=== PATIENT | female | born 1940 | race Caucasian/White ===

== ENCOUNTER 2021-02-04 10:14 | Inpatient (IN) ==
[2021-02-04] MEDS ORDERED: PIPERACILLIN/TAZOBACTAM 3,375 MG in SODIUM CHLORIDE 0.9% 100 ML IV STA (11:08)
[2021-02-04] MEDS ORDERED: SODIUM CHLORIDE 0.9% 1,000 ML IV STA (11:08)
[2021-02-04 11:26] LABS: Basophils # 0.1 10*3/uL (0.0-0.2); Basophils % 0.2 % (0.0-0.8); Eosinophils # 0.1 10*3/uL (0.0-0.87); Eosinophils % 0.3 % (0.00-10.9); Hematocrit 38.1 VOL% (35.7-47.0); Hemoglobin 12.5 GM/DL (12.0-16.0); Immature Granulocytes % 1.2 %; Immature Granulocytes Absolute 0.28 #; Lymphocytes # 1.3 10*3/uL (1.4-4.0); Lymphocytes % 5.3 % (21.3-54.2); Mean Corpuscular HGB Conc 32.8 GM/DL (32-36); Mean Corpuscular Volume 97.2 FL (87-102); Mean Platelet Volume 11.3 FL (9.6-12.0); Monocytes % 13.5 % (1.7-12.7); Neutrophils % 79.5 % (38.7-73.9); Platelet Count 228 T/CUMM (130-400); Red Blood Count 3.92 MC/CUMM (3.8-5.5); Red Cell Distribution Width 15.2 % (9.3-17.3); White Blood Count 24.1 T/CUMM (4-12)
[2021-02-04 11:36] LABS: Albumin 2.9 G/DL (3.4-5.0); Bilirubin,Total 1.6 MG/DL (0.2-1.0); Calcium 8.7 MG/DL (8.5-10.1); Osmolality,Calculated 274.7 MOS/KG (273-304); Potassium 3.3 MMOL/L (3.5-5.1); Total Protein 6.5 G/DL (6.4-8.2)
[2021-02-04 11:40] LABS: Bilirubin,Urine Negative (Negative); Blood, Urine Negative (Negative); Glucose,Urine (UA) Negative (Negative); Ketones,Urine Negative (Negative); Mucus,Urine Occasional /LPF (Occasional); Nitrite,Urine Negative (Negative); Protein,Urine Negative; RBC,Urine 1 /HPF (0-4); Urine Appearance CLEAR (Clear); Urine Color Yellow (Yellow); Urine Specific Gravity 1.013 (1.001-1.035)
[2021-02-04 11:45] LABS: Eosinophils 1 % (0-10); Lymphocytes 6 % (20-55); Segmented Neutrophils 86 % (50-85); Total Cells Counted 100
[2021-02-04 11:46] LABS: Microcytosis 1+; Ovalocytes Few; Platelet Estimate Normal
[2021-02-04] MEDS ORDERED: VANCOMYCIN INJ 1,000 MG in SODIUM CHLORIDE 0.9% 250 ML IV STA (13:28)
[2021-02-04] MEDS ORDERED: POTASSIUM CHLORIDE 20 MEQ TABLET PO STA (15:17)
[2021-02-04] MEDS ORDERED: ONDANSETRON 4 MG/2 ML VIAL IV PRN (16:28)
[2021-02-04] MEDS ORDERED: HYDROmorphone 2 MG/1 ML VIAL IV PRN (16:28)
[2021-02-04] MEDS ORDERED: DEXTROSE 50% 25 GM/50 ML VIAL IV PRN (16:28)
[2021-02-04] MEDS ORDERED: ACETAMINOPHEN 325 MG TABLET PO PRN (16:28)
[2021-02-04] MEDS ORDERED: GLUCAGON 1 MG VIAL IM PRN (16:28)
[2021-02-04] MEDS ORDERED: PROMETHAZINE 25 MG/1 ML VIAL IM PRN (16:28)
[2021-02-04] MEDS ORDERED: VANCOMYCIN INJ 1,500 MG in SODIUM CHLORIDE 0.9% 500 ML IV SCH (18:00)
[2021-02-04] MEDS: LACTATED RINGERS 1,000 ML IV SCH (18:02)
[2021-02-04] MEDS: PIPERACILLIN/TAZOBACTAM 3,375 MG in SODIUM CHLORIDE 0.9% 100 ML IV SCH (18:36)
[2021-02-04] MEDS: busPIRone 15 MG TABLET PO SCH (20:36)
[2021-02-04] MEDS: MILNACIPRAN 25 MG PO SCH (20:38)
[2021-02-05] MEDS: KETOROLAC 15 MG/1 ML VIAL IV PRN (00:05)
[2021-02-05] MEDS: PIPERACILLIN/TAZOBACTAM 3,375 MG in SODIUM CHLORIDE 0.9% 100 ML IV SCH ×3 (01:31→18:14)
[2021-02-05] MEDS: LACTATED RINGERS 1,000 ML IV SCH ×3 (01:40→18:17)
[2021-02-05 05:18] LABS: Basophils % 0.2 % (0.0-0.8); Eosinophils # 0.3 10*3/uL (0.0-0.87); Eosinophils % 1.8 % (0.00-10.9); Hematocrit 34.5 VOL% (35.7-47.0); Hemoglobin 11.5 GM/DL (12.0-16.0); Immature Granulocytes % 0.8 %; Immature Granulocytes Absolute 0.13 #; Lymphocytes # 2.3 10*3/uL (1.4-4.0); Lymphocytes % 13.7 % (21.3-54.2); Mean Corpuscular HGB Conc 33.3 GM/DL (32-36); Mean Corpuscular Volume 96.6 FL (87-102); Mean Platelet Volume 11.5 FL (9.6-12.0); Monocytes % 14.1 % (1.7-12.7); Neutrophils % 69.4 % (38.7-73.9); Platelet Count 184 T/CUMM (130-400); Red Blood Count 3.57 MC/CUMM (3.8-5.5); Red Cell Distribution Width 14.9 % (9.3-17.3); White Blood Count 16.5 T/CUMM (4-12)
[2021-02-05 05:53] LABS: Calcium 8.9 MG/DL (8.5-10.1); Osmolality,Calculated 283.8 MOS/KG (273-304); Potassium 4.1 MMOL/L (3.5-5.1)
[2021-02-05] MEDS ORDERED: LIDOCAINE 1%/EPI INJ 20 ML VIAL ONE (06:35)
[2021-02-05] MEDS ORDERED: BUPIVACAINE MPF 0.25% 30 ML VIAL ONE (06:35)
[2021-02-05] MEDS ORDERED: MIDAZOLAM 2 MG/2 ML VIAL ONE (06:49)
[2021-02-05] MEDS ORDERED: METOCLOPRAMIDE 10 MG/2 ML VIAL ONE (06:56)
[2021-02-05] MEDS ORDERED: LACTATED RINGERS 1,000 ML IV SCH (07:00)
[2021-02-05] MEDS ORDERED: LIDOCAINE 2% 5 ML VIAL ONE (07:36)
[2021-02-05] MEDS ORDERED: propofoL 200 MG/20 ML VIAL IV ONE (07:36)
[2021-02-05] MEDS ORDERED: SEVOFLURANE 1 UNIT/15 MINUTE INH ONE (07:36)
[2021-02-05] MEDS ORDERED: PHENYLEPHRINE 1 MG/10 ML SYRINGE IV ONE (07:36)
[2021-02-05] MEDS ORDERED: ONDANSETRON 4 MG/2 ML VIAL ONE (07:36)
[2021-02-05] MEDS ORDERED: HYDROmorphone 2 MG/1 ML VIAL IV PRN (08:16)
[2021-02-05] MEDS ORDERED: ONDANSETRON 4 MG/2 ML VIAL IV PRN (08:16)
[2021-02-05] MEDS ORDERED: HYDROmorphone 2 MG/1 ML VIAL ONE (08:18)
[2021-02-05] MEDS ORDERED: PANTOPRAZOLE 40 MG TABLET PO SCH (09:00)
[2021-02-05] MEDS ORDERED: traMADol 50 MG TABLET PO PRN ×2 (09:46)
[2021-02-05] MEDS ORDERED: tiZANidine 4 MG TABLET PO PRN (09:46)
[2021-02-05] MEDS ORDERED: INSULIN REGULAR 100 UNIT/ML SUBCUT SCH (11:30)
[2021-02-05] MEDS: ENOXAPARIN 40 MG/0.4 ML SYRINGE SUBCUT SCH (11:54)
[2021-02-05] MEDS: busPIRone 15 MG TABLET PO SCH ×3 (11:54→20:55)
[2021-02-05] MEDS: allopurinoL 100 MG TABLET PO SCH (11:54)
[2021-02-05] MEDS: PREGABALIN 75 MG CAPSULE PO SCH (11:55)
[2021-02-05] MEDS: FAMCICLOVIR 250 MG TABLET PO SCH ×2 (11:55→20:55)
[2021-02-05] MEDS: NEBIVOLOL 5 MG TABLET PO SCH (11:55)
[2021-02-05] MEDS: HYDROXYCHLOROQUINE 200 MG TABLET PO SCH (11:55)
[2021-02-05] MEDS ORDERED: diphenhydrAMINE CAP 25 MG CAPSULE PO PRN (12:10)
[2021-02-05] MEDS: MILNACIPRAN 25 MG PO SCH ×2 (12:14→20:54)
[2021-02-05] MEDS: BIOTIN 5 MG PO SCH (12:15)
[2021-02-05] MEDS: VANCOMYCIN INJ 1,500 MG in SODIUM CHLORIDE 0.9% 500 ML IV SCH (16:06)
[2021-02-05] MEDS: PANTOPRAZOLE 40 MG TABLET PO SCH (18:14)
[2021-02-05] MEDS: PREGABALIN 100 MG CAPSULE PO SCH (18:15)
[2021-02-06] MEDS: PIPERACILLIN/TAZOBACTAM 3,375 MG in SODIUM CHLORIDE 0.9% 100 ML IV SCH ×3 (00:34→16:28)
[2021-02-06 06:58] LABS: Calcium 9.2 MG/DL (8.5-10.1); Osmolality,Calculated 277.4 MOS/KG (273-304); Potassium 3.6 MMOL/L (3.5-5.1)
[2021-02-06 07:05] LABS: Basophils # 0.1 10*3/uL (0.0-0.2); Basophils % 0.4 % (0.0-0.8); Eosinophils # 0.2 10*3/uL (0.0-0.87); Eosinophils % 1.4 % (0.00-10.9); Hematocrit 38.6 VOL% (35.7-47.0); Hemoglobin 13.4 GM/DL (12.0-16.0); Immature Granulocytes % 1.1 %; Immature Granulocytes Absolute 0.19 #; Lymphocytes % 11.8 % (21.3-54.2); Mean Corpuscular HGB Conc 34.7 GM/DL (32-36); Mean Corpuscular Volume 94.4 FL (87-102); Mean Platelet Volume 12.8 FL (9.6-12.0); Monocytes % 16.4 % (1.7-12.7); Neutrophils % 68.9 % (38.7-73.9); Platelet Count 176 T/CUMM (130-400); Red Blood Count 4.09 MC/CUMM (3.8-5.5); Red Cell Distribution Width 14.9 % (9.3-17.3); White Blood Count 16.8 T/CUMM (4-12)
[2021-02-06 07:51] LABS: Anisocytosis Slight; Eosinophils 2 % (0-10); Lymphocytes 12 % (20-55); Macrocytosis Slight; Platelet Estimate Normal; Polychromasia 1+; Segmented Neutrophils 69 % (50-85); Total Cells Counted 100
[2021-02-06] MEDS: VANCOMYCIN INJ 1,500 MG in SODIUM CHLORIDE 0.9% 500 ML IV SCH (09:14)
[2021-02-06] MEDS: LACTATED RINGERS 1,000 ML IV SCH (09:17)
[2021-02-06] MEDS: ENOXAPARIN 40 MG/0.4 ML SYRINGE SUBCUT SCH (09:17)
[2021-02-06] MEDS: busPIRone 15 MG TABLET PO SCH ×3 (09:18→21:22)
[2021-02-06] MEDS: allopurinoL 100 MG TABLET PO SCH (09:18)
[2021-02-06] MEDS: PANTOPRAZOLE 40 MG TABLET PO SCH ×2 (09:18→16:27)
[2021-02-06] MEDS: NEBIVOLOL 5 MG TABLET PO SCH (09:18)
[2021-02-06] MEDS: PREGABALIN 75 MG CAPSULE PO SCH (09:18)
[2021-02-06] MEDS: BIOTIN 5 MG PO SCH (09:19)
[2021-02-06] MEDS: MILNACIPRAN 25 MG PO SCH ×2 (09:20→21:23)
[2021-02-06] MEDS: FAMCICLOVIR 250 MG TABLET PO SCH ×2 (10:52→21:22)
[2021-02-06] MEDS: HYDROXYCHLOROQUINE 200 MG TABLET PO SCH (10:52)
[2021-02-06] MEDS ORDERED: POTASSIUM CHLORIDE RIDER 10 MEQ/100 ML PREMIX IV PRN (15:05)
[2021-02-06] MEDS ORDERED: MAGNESIUM SULF RIDER 2 GM/50 ML PREMIX IV PRN (15:05)
[2021-02-06] MEDS ORDERED: MAGNESIUM SULF RIDER 4 GM/100 ML PREMIX IV PRN (15:05)
[2021-02-06] MEDS: POTASSIUM CHLORIDE 20 MEQ TABLET PO PRN ×2 (16:27→18:05)
[2021-02-06] MEDS: PREGABALIN 100 MG CAPSULE PO SCH (16:27)
[2021-02-07] MEDS: PIPERACILLIN/TAZOBACTAM 3,375 MG in SODIUM CHLORIDE 0.9% 100 ML IV SCH ×3 (01:15→16:50)
[2021-02-07] MEDS: KETOROLAC 15 MG/1 ML VIAL IV PRN (04:57)
[2021-02-07] MEDS: VANCOMYCIN INJ 1,500 MG in SODIUM CHLORIDE 0.9% 500 ML IV SCH ×2 (05:31→23:13)
[2021-02-07 06:47] LABS: Basophils # 0.1 10*3/uL (0.0-0.2); Basophils % 0.4 % (0.0-0.8); Eosinophils # 0.3 10*3/uL (0.0-0.87); Eosinophils % 2.3 % (0.00-10.9); Hematocrit 35.4 VOL% (35.7-47.0); Hemoglobin 11.8 GM/DL (12.0-16.0); Immature Granulocytes % 1.9 %; Immature Granulocytes Absolute 0.29 #; Lymphocytes # 1.9 10*3/uL (1.4-4.0); Lymphocytes % 12.4 % (21.3-54.2); Mean Corpuscular HGB Conc 33.3 GM/DL (32-36); Mean Corpuscular Volume 95.7 FL (87-102); Mean Platelet Volume 10.9 FL (9.6-12.0); Monocytes % 16.5 % (1.7-12.7); Neutrophils % 66.5 % (38.7-73.9); Platelet Count 223 T/CUMM (130-400); Red Cell Distribution Width 15.1 % (9.3-17.3); White Blood Count 14.9 T/CUMM (4-12)
[2021-02-07 07:15] LABS: Calcium 8.9 MG/DL (8.5-10.1); Osmolality,Calculated 291.4 MOS/KG (273-304); Potassium 3.9 MMOL/L (3.5-5.1)
[2021-02-07 07:34] LABS: Anisocytosis 3+; Band Neutrophils 4 % (0-10); Eosinophils 3 % (0-10); Lymphocytes 11 % (20-55); Platelet Estimate Normal; Poikilocytosis 1+; Segmented Neutrophils 67 % (50-85); Total Cells Counted 100
[2021-02-07 07:36] LABS: Burr Cells 1+; Ovalocytes Few; Tear Drop Cells Few
[2021-02-07] MEDS ORDERED: POLYETHYLENE GLYCOL POWDER 17 GM PACK PO PRN (07:47)
[2021-02-07] MEDS ORDERED: TETANUS IMMUNE GLOBULIN 250 UNIT SYRINGE IM ONE (09:00)
[2021-02-07] MEDS: busPIRone 15 MG TABLET PO SCH ×3 (09:50→20:56)
[2021-02-07] MEDS: FAMCICLOVIR 250 MG TABLET PO SCH ×2 (09:50→20:57)
[2021-02-07] MEDS: PREGABALIN 75 MG CAPSULE PO SCH (09:50)
[2021-02-07] MEDS: allopurinoL 100 MG TABLET PO SCH (09:51)
[2021-02-07] MEDS: NEBIVOLOL 5 MG TABLET PO SCH (09:51)
[2021-02-07] MEDS: ENOXAPARIN 40 MG/0.4 ML SYRINGE SUBCUT SCH (09:51)
[2021-02-07] MEDS: POTASSIUM CHLORIDE 20 MEQ TABLET PO PRN (09:51)
[2021-02-07] MEDS: PANTOPRAZOLE 40 MG TABLET PO SCH ×2 (09:51→15:41)
[2021-02-07] MEDS: HYDROXYCHLOROQUINE 200 MG TABLET PO SCH (09:51)
[2021-02-07] MEDS: BIOTIN 5 MG PO SCH (10:41)
[2021-02-07] MEDS: MILNACIPRAN 25 MG PO SCH ×2 (10:41→20:58)
[2021-02-07] MEDS: PREGABALIN 100 MG CAPSULE PO SCH (16:47)
[2021-02-08] MEDS: PIPERACILLIN/TAZOBACTAM 3,375 MG in SODIUM CHLORIDE 0.9% 100 ML IV SCH ×2 (02:15→08:01)
[2021-02-08 06:03] LABS: Basophils % 0.3 % (0.0-0.8); Eosinophils # 0.3 10*3/uL (0.0-0.87); Eosinophils % 2.1 % (0.00-10.9); Hematocrit 45.1 VOL% (35.7-47.0); Hemoglobin 14.5 GM/DL (12.0-16.0); Immature Granulocytes % 3.1 %; Immature Granulocytes Absolute 0.47 #; Lymphocytes # 1.4 10*3/uL (1.4-4.0); Lymphocytes % 9.5 % (21.3-54.2); Mean Corpuscular HGB Conc 32.2 GM/DL (32-36); Mean Corpuscular Volume 100.7 FL (87-102); Monocytes % 12.8 % (1.7-12.7); Neutrophils % 72.2 % (38.7-73.9); Platelet Count 189 T/CUMM (130-400); Red Blood Count 4.48 MC/CUMM (3.8-5.5); Red Cell Distribution Width 15.3 % (9.3-17.3)
[2021-02-08 06:26] LABS: Calcium 9.2 MG/DL (8.5-10.1); Potassium 4.6 MMOL/L (3.5-5.1)
[2021-02-08] MEDS: ENOXAPARIN 40 MG/0.4 ML SYRINGE SUBCUT SCH (08:44)
[2021-02-08] MEDS: busPIRone 15 MG TABLET PO SCH ×3 (08:44→20:31)
[2021-02-08] MEDS: allopurinoL 100 MG TABLET PO SCH (08:45)
[2021-02-08] MEDS: FAMCICLOVIR 250 MG TABLET PO SCH ×2 (08:45→20:31)
[2021-02-08] MEDS: PREGABALIN 75 MG CAPSULE PO SCH (08:46)
[2021-02-08] MEDS: NEBIVOLOL 10 MG TABLET PO SCH (08:46)
[2021-02-08] MEDS: PANTOPRAZOLE 40 MG TABLET PO SCH ×2 (08:46→16:04)
[2021-02-08] MEDS: HYDROXYCHLOROQUINE 200 MG TABLET PO SCH (08:46)
[2021-02-08] MEDS: BIOTIN 5 MG PO SCH (08:46)
[2021-02-08] MEDS: MILNACIPRAN 25 MG PO SCH ×2 (08:47→20:31)
[2021-02-08] MEDS ORDERED: METHOTREXATE 50 MG/2 ML VIAL IM SCH (09:00)
[2021-02-08] MEDS ORDERED: LEUCOVORIN TAB 5 MG TABLET PO SCH ×2 (09:00)
[2021-02-08] MEDS: PREGABALIN 100 MG CAPSULE PO SCH (16:04)
[2021-02-09] MEDS ORDERED: VANCOMYCIN INJ 1,500 MG in SODIUM CHLORIDE 0.9% 500 ML IV SCH (06:00)
[2021-02-09] MEDS: ENOXAPARIN 40 MG/0.4 ML SYRINGE SUBCUT SCH (09:01)
[2021-02-09] MEDS: HYDROXYCHLOROQUINE 200 MG TABLET PO SCH (09:02)
[2021-02-09] MEDS: NEBIVOLOL 10 MG TABLET PO SCH (09:02)
[2021-02-09] MEDS: PREGABALIN 75 MG CAPSULE PO SCH (09:02)
[2021-02-09] MEDS: busPIRone 15 MG TABLET PO SCH ×3 (09:02→20:38)
[2021-02-09] MEDS: FAMCICLOVIR 250 MG TABLET PO SCH ×2 (09:02→20:38)
[2021-02-09] MEDS: PANTOPRAZOLE 40 MG TABLET PO SCH ×2 (09:02→16:25)
[2021-02-09] MEDS: allopurinoL 100 MG TABLET PO SCH (09:03)
[2021-02-09] MEDS: MILNACIPRAN 25 MG PO SCH ×2 (09:03→20:38)
[2021-02-09] MEDS: BIOTIN 5 MG PO SCH (09:03)
[2021-02-09] MEDS: PREGABALIN 100 MG CAPSULE PO SCH (16:25)
[2021-02-09 23:26] VITALS: BP 135/74
== END 2021-02-10 00:05 | DRG 580 ==
LOC: EDUNIT# → EDBD → N.ED 10:14 → N.EDINP 13:28 → N.TELEN 15:43
PROVIDERS: ADMIT Surgery; ATTEND Surgery

== ENCOUNTER 2021-03-26 12:25 | Inpatient (IN) ==
[2021-03-26 14:37] LABS: Basophils % 0.2 % (0.0-0.8); Eosinophils # 0.3 10*3/uL (0.0-0.87); Eosinophils % 2.5 % (0.00-10.9); Hematocrit 21.1 VOL% (35.7-47.0); Hemoglobin 6.6 GM/DL (12.0-16.0); Immature Granulocytes % 0.9 %; Immature Granulocytes Absolute 0.12 #; Lymphocytes # 2.7 10*3/uL (1.4-4.0); Lymphocytes % 20.3 % (21.3-54.2); Mean Corpuscular HGB Conc 31.3 GM/DL (32-36); Mean Corpuscular Volume 99.1 FL (87-102); Mean Platelet Volume 12.6 FL (9.6-12.0); Monocytes % 21.3 % (1.7-12.7); Neutrophils % 54.8 % (38.7-73.9); Platelet Count 107 T/CUMM (130-400); Red Blood Count 2.13 MC/CUMM (3.8-5.5); Red Cell Distribution Width 18.4 % (9.3-17.3); White Blood Count 13.1 T/CUMM (4-12)
[2021-03-26 14:53] LABS: Calcium 9.1 MG/DL (8.5-10.1); Osmolality,Calculated 302.8 MOS/KG (273-304); Potassium 4.1 MMOL/L (3.5-5.1)
[2021-03-26] MEDS ORDERED: ONDANSETRON 4 MG/2 ML VIAL IV PRN (15:15)
[2021-03-26] MEDS ORDERED: ACETAMINOPHEN 325 MG TABLET PO PRN (15:15)
[2021-03-26] MEDS ORDERED: SODIUM CHLORIDE 0.9% 1,000 ML IV PRN (15:18)
[2021-03-26 15:26] LABS: Eosinophils 4 % (0-10); Hypochromasia 4+; Lymphocytes 16 % (20-55); Segmented Neutrophils 70 % (50-85); Total Cells Counted 100
[2021-03-26 15:28] LABS: INR 1.5; PT Patient Result 16.3 SECS (10.5-12.0); Partial Thromboplastin Time 35.9 SECS (23.9-33.8)
[2021-03-26] MEDS ORDERED: oxyCODONE/ACETAMINOPHEN 5-325 MG TABLET PO PRN (17:41)
[2021-03-26] MEDS: busPIRone 10 MG TABLET PO SCH ×2 (19:48→23:20)
[2021-03-26] MEDS: PREGABALIN 75 MG CAPSULE PO SCH (21:38)
[2021-03-26] MEDS: DOCUSATE SODIUM 100 MG CAPSULE PO SCH (21:38)
[2021-03-26] MEDS: SODIUM CHLORIDE 0.9% 1,000 ML IV SCH (23:20)
[2021-03-26] MEDS: AMOXICILLIN/CLAV 500 MG TABLET PO SCH (23:20)
[2021-03-27 01:05] LABS: Hematocrit 30.1 VOL% (35.7-47.0)
[2021-03-27 01:07] LABS: Hemoglobin 9.7 GM/DL (12.0-16.0)
[2021-03-27] MEDS: busPIRone 10 MG TABLET PO SCH ×4 (05:42→23:48)
[2021-03-27] MEDS: PREGABALIN 75 MG CAPSULE PO SCH ×2 (05:42→21:41)
[2021-03-27] MEDS: AMOXICILLIN/CLAV 500 MG TABLET PO SCH ×3 (05:42→21:41)
[2021-03-27] MEDS ORDERED: METOPROLOL TARTRATE 50 MG TABLET PO SCH (09:00)
[2021-03-27] MEDS ORDERED: METOPROLOL TARTRATE 50 MG TABLET PO ONE (09:28)
[2021-03-27] MEDS: allopurinoL 100 MG TABLET PO SCH (10:01)
[2021-03-27] MEDS: MEGESTROL 400 MG/10 ML UDCUP PO SCH (10:01)
[2021-03-27] MEDS: DOCUSATE SODIUM 100 MG CAPSULE PO SCH ×2 (10:01→21:41)
[2021-03-27] MEDS: HYDROXYCHLOROQUINE 200 MG TABLET PO SCH (10:01)
[2021-03-27] MEDS: MULTIVITAMIN (CENTRUM) TABLET PO SCH (10:01)
[2021-03-27] MEDS: PANTOPRAZOLE 40 MG TABLET PO SCH (10:02)
[2021-03-27] MEDS: METOPROLOL TARTRATE 50 MG TABLET PO SCH (21:41)
[2021-03-28] MEDS: SODIUM CHLORIDE 0.9% 1,000 ML IV SCH ×2 (05:30→23:53)
[2021-03-28] MEDS: PREGABALIN 75 MG CAPSULE PO SCH ×2 (05:43→20:18)
[2021-03-28] MEDS: busPIRone 10 MG TABLET PO SCH ×4 (05:43→23:52)
[2021-03-28] MEDS: AMOXICILLIN/CLAV 500 MG TABLET PO SCH (05:43)
[2021-03-28 05:47] LABS: Albumin 2.2 G/DL (3.4-5.0); Calcium 9.1 MG/DL (8.5-10.1); Osmolality,Calculated 294.1 MOS/KG (273-304); Potassium 4.6 MMOL/L (3.5-5.1); Thyroid Stimulating Hormone 3.2 uIU/ml (0.358-3.74); Total Protein 6.6 G/DL (6.4-8.2)
[2021-03-28 07:21] LABS: Basophils % 0.3 % (0.0-0.8); Eosinophils # 0.5 10*3/uL (0.0-0.87); Eosinophils % 2.9 % (0.00-10.9); Hematocrit 29.2 VOL% (35.7-47.0); Hemoglobin 9.3 GM/DL (12.0-16.0); Immature Granulocytes % 4.1 %; Immature Granulocytes Absolute 0.64 #; Mean Corpuscular HGB Conc 31.8 GM/DL (32-36); Mean Corpuscular Volume 95.1 FL (87-102); Mean Platelet Volume 13.2 FL (9.6-12.0); Monocytes % 23.2 % (1.7-12.7); Neutrophils % 50.5 % (38.7-73.9); Red Blood Count 3.07 MC/CUMM (3.8-5.5); Red Cell Distribution Width 16.9 % (9.3-17.3); White Blood Count 15.7 T/CUMM (4-12)
[2021-03-28 07:22] LABS: Platelet Count 81 T/CUMM (130-400)
[2021-03-28 07:40] LABS: Eosinophils 4 % (0-10); Lymphocytes 20 % (20-55); Nucleated Red Blood Cells 1 (0-5); Platelet Estimate Decreased; Segmented Neutrophils 55 % (50-85); Total Cells Counted 100
[2021-03-28 07:41] LABS: Hypochromasia 1+; Microcytosis 1+
[2021-03-28] MEDS: allopurinoL 100 MG TABLET PO SCH (08:39)
[2021-03-28] MEDS: HYDROXYCHLOROQUINE 200 MG TABLET PO SCH (08:39)
[2021-03-28] MEDS: PANTOPRAZOLE 40 MG TABLET PO SCH (08:39)
[2021-03-28] MEDS: DOCUSATE SODIUM 100 MG CAPSULE PO SCH ×2 (08:39→20:18)
[2021-03-28] MEDS: MULTIVITAMIN (CENTRUM) TABLET PO SCH (08:39)
[2021-03-28] MEDS: METOPROLOL TARTRATE 50 MG TABLET PO SCH ×2 (08:39→20:18)
[2021-03-28] MEDS: MEGESTROL 400 MG/10 ML UDCUP PO SCH (08:40)
[2021-03-28] MEDS: PIPERACILLIN/TAZOBACTAM 3,375 MG in SODIUM CHLORIDE 0.9% 100 ML IV SCH ×2 (10:00→17:34)
[2021-03-28] MEDS: cloNIDine 0.1 MG TABLET PO PRN (10:07)
[2021-03-28 13:27] LABS: Amorphous Crystals,Urine Occasional /HPF (Few); Bacteria,Urine Occasional /HPF (Few); Bilirubin,Urine Negative (Negative); Blood, Urine Large mg/dL (Negative); Glucose,Urine (UA) Negative (Negative); Hyaline Casts,Urine 4 /LPF (0-3); Ketones,Urine Negative (Negative); Mucus,Urine Occasional /LPF (Occasional); Nitrite,Urine Negative (Negative); Protein,Urine 100 MG/DL; RBC,Urine 100 /HPF (0-4); Squamous Epithelial Cell,Urine Occasional /HPF (0-10); Urine Appearance Slightly Hazy (Clear); Urine Color Yellow (Yellow); Urine Specific Gravity 1.017 (1.001-1.035); Urine Urobilinogen < 2.0 EU/DL (0.2-1.0)
[2021-03-29] MEDS: PIPERACILLIN/TAZOBACTAM 3,375 MG in SODIUM CHLORIDE 0.9% 100 ML IV SCH ×3 (02:30→18:02)
[2021-03-29] MEDS: busPIRone 10 MG TABLET PO SCH ×4 (05:24→23:59)
[2021-03-29] MEDS: PREGABALIN 75 MG CAPSULE PO SCH ×2 (05:24→21:57)
[2021-03-29] MEDS: MULTIVITAMIN (CENTRUM) TABLET PO SCH (08:56)
[2021-03-29] MEDS: DOCUSATE SODIUM 100 MG CAPSULE PO SCH ×2 (08:56→21:57)
[2021-03-29] MEDS: METOPROLOL TARTRATE 50 MG TABLET PO SCH ×2 (08:57→21:57)
[2021-03-29] MEDS: allopurinoL 100 MG TABLET PO SCH (08:57)
[2021-03-29] MEDS: PANTOPRAZOLE 40 MG TABLET PO SCH ×2 (08:57→21:57)
[2021-03-29] MEDS: HYDROXYCHLOROQUINE 200 MG TABLET PO SCH (08:57)
[2021-03-29] MEDS ORDERED: NITROGLYCERIN SL 0.4 MG TABLET SL ONE (09:56)
[2021-03-29] MEDS ORDERED: ASPIRIN CHEW 81 MG TABLET PO ONE ×2 (09:57→10:00)
[2021-03-29] MEDS: NITROGLYCERIN SL 0.4 MG TABLET SL PRN ×3 (09:58→10:10)
[2021-03-29] MEDS: cloNIDine 0.1 MG TABLET PO SCH ×2 (10:19→21:57)
[2021-03-29] MEDS: MEGESTROL 400 MG/10 ML UDCUP PO SCH (10:19)
[2021-03-29] MEDS ORDERED: ALUM/MAG/SIMETH/LIDO VISC 1:1 30 ML BOTTLE PO ONE (10:26)
[2021-03-29 11:24] LABS: Albumin 2.3 G/DL (3.4-5.0); Calcium 8.8 MG/DL (8.5-10.1); Osmolality,Calculated 299.6 MOS/KG (273-304); Potassium 4.1 MMOL/L (3.5-5.1); Total Protein 6.5 G/DL (6.4-8.2)
[2021-03-29] MEDS: cloNIDine 0.1 MG TABLET PO PRN (18:04)
[2021-03-30] MEDS: PIPERACILLIN/TAZOBACTAM 3,375 MG in SODIUM CHLORIDE 0.9% 100 ML IV SCH ×3 (02:22→17:48)
[2021-03-30 05:40] LABS: Basophils % 0.3 % (0.0-0.8); Eosinophils # 0.3 10*3/uL (0.0-0.87); Hematocrit 25.9 VOL% (35.7-47.0); Immature Granulocytes % 4.9 %; Immature Granulocytes Absolute 0.55 #; Lymphocytes # 1.8 10*3/uL (1.4-4.0); Lymphocytes % 15.5 % (21.3-54.2); Mean Corpuscular HGB Conc 30.9 GM/DL (32-36); Mean Corpuscular Volume 98.5 FL (87-102); Monocytes % 23.4 % (1.7-12.7); Neutrophils % 52.9 % (38.7-73.9); Red Blood Count 2.63 MC/CUMM (3.8-5.5); Red Cell Distribution Width 17.5 % (9.3-17.3); White Blood Count 11.3 T/CUMM (4-12)
[2021-03-30 05:43] LABS: Platelet Count 84 T/CUMM (130-400)
[2021-03-30] MEDS: busPIRone 10 MG TABLET PO SCH ×4 (05:46→23:42)
[2021-03-30] MEDS: PREGABALIN 75 MG CAPSULE PO SCH ×2 (05:47→21:07)
[2021-03-30 06:04] LABS: Calcium 8.8 MG/DL (8.5-10.1); Osmolality,Calculated 300.4 MOS/KG (273-304); Potassium 4.3 MMOL/L (3.5-5.1)
[2021-03-30 06:23] LABS: Eosinophils 3 % (0-10); Lymphocytes 13 % (20-55); Metamyelocytes 2 %; Myelocytes 2 %; Segmented Neutrophils 61 % (50-85); Total Cells Counted 100
[2021-03-30 06:24] LABS: Hypochromasia 1+; Platelet Estimate Adequate; Polychromasia Few
[2021-03-30] MEDS: LACTATED RINGERS 1,000 ML IV SCH (08:50)
[2021-03-30] MEDS: MULTIVITAMIN (CENTRUM) TABLET PO SCH (11:39)
[2021-03-30] MEDS: METOPROLOL TARTRATE 50 MG TABLET PO SCH ×2 (11:39→21:07)
[2021-03-30] MEDS: cloNIDine 0.1 MG TABLET PO SCH ×2 (11:40→21:07)
[2021-03-30] MEDS: HYDROXYCHLOROQUINE 200 MG TABLET PO SCH (11:40)
[2021-03-30] MEDS: DOCUSATE SODIUM 100 MG CAPSULE PO SCH ×2 (11:40→21:07)
[2021-03-30] MEDS: allopurinoL 100 MG TABLET PO SCH (11:40)
[2021-03-30] MEDS: PANTOPRAZOLE 40 MG TABLET PO SCH ×2 (11:40→21:07)
[2021-03-30] MEDS: MEGESTROL 400 MG/10 ML UDCUP PO SCH (11:51)
[2021-03-30] MEDS ORDERED: LORazepam 0.5 MG TABLET PO ONE (12:31)
[2021-03-30] MEDS: SODIUM CHLORIDE 0.9% 1,000 ML IV SCH (17:48)
[2021-03-30] MEDS: ENOXAPARIN 30 MG/0.3 ML SYRINGE SUBCUT SCH (21:09)
[2021-03-31] MEDS: SODIUM CHLORIDE 0.9% 1,000 ML IV SCH (01:34)
[2021-03-31] MEDS: PIPERACILLIN/TAZOBACTAM 3,375 MG in SODIUM CHLORIDE 0.9% 100 ML IV SCH ×3 (01:35→17:44)
[2021-03-31] MEDS: busPIRone 10 MG TABLET PO SCH ×3 (05:19→17:44)
[2021-03-31] MEDS: PREGABALIN 75 MG CAPSULE PO SCH ×2 (05:19→20:02)
[2021-03-31] MEDS ORDERED: LACTATED RINGERS 1,000 ML IV SCH (07:00)
[2021-03-31 08:19] LABS: Calcium 8.7 MG/DL (8.5-10.1); Osmolality,Calculated 303.3 MOS/KG (273-304); Potassium 4.2 MMOL/L (3.5-5.1)
[2021-03-31] MEDS ORDERED: propofoL 200 MG/20 ML VIAL IV ONE (08:49)
[2021-03-31] MEDS ORDERED: LIDOCAINE 2% 5 ML VIAL ONE (08:49)
[2021-03-31] MEDS ORDERED: ETOMIDATE 20 MG/10 ML VIAL IV ONE (08:49)
[2021-03-31] MEDS: MEGESTROL 400 MG/10 ML UDCUP PO SCH (11:06)
[2021-03-31] MEDS: allopurinoL 100 MG TABLET PO SCH (11:06)
[2021-03-31] MEDS: PANTOPRAZOLE 40 MG TABLET PO SCH ×2 (11:06→20:03)
[2021-03-31] MEDS: cloNIDine 0.1 MG TABLET PO SCH ×2 (11:06→20:04)
[2021-03-31] MEDS: METOPROLOL TARTRATE 50 MG TABLET PO SCH ×2 (11:06→20:02)
[2021-03-31] MEDS: HYDROXYCHLOROQUINE 200 MG TABLET PO SCH (11:06)
[2021-03-31] MEDS: DOCUSATE SODIUM 100 MG CAPSULE PO SCH ×2 (11:06→20:03)
[2021-03-31] MEDS: MULTIVITAMIN (CENTRUM) TABLET PO SCH (11:06)
[2021-03-31 11:14] LABS: Basophils % 0.3 % (0.0-0.8); Eosinophils # 0.2 10*3/uL (0.0-0.87); Hemoglobin 8.7 GM/DL (12.0-16.0); Immature Granulocytes % 3.2 %; Immature Granulocytes Absolute 0.51 #; Lymphocytes # 2.1 10*3/uL (1.4-4.0); Lymphocytes % 13.5 % (21.3-54.2); Mean Corpuscular HGB Conc 32.2 GM/DL (32-36); Mean Corpuscular Volume 96.4 FL (87-102); Mean Platelet Volume 13.8 FL (9.6-12.0); NRBC # 0.02 10*3/uL; Platelet Count 117 T/CUMM (130-400); Red Cell Distribution Width 18.6 % (9.3-17.3); White Blood Count 15.8 T/CUMM (4-12)
[2021-03-31 11:57] LABS: Lymphocytes 14 % (20-55); Myelocytes 2 %; Segmented Neutrophils 68 % (50-85); Total Cells Counted 100
[2021-03-31 11:58] LABS: Hypochromasia 1+; Microcytosis 1+; Ovalocytes Slight; Platelet Estimate Adequate
[2021-03-31 11:59] LABS: Atypical Lymphocytes Few
[2021-03-31] MEDS: LACTATED RINGERS 1,000 ML IV SCH (17:29)
[2021-03-31] MEDS ORDERED: METOPROLOL TARTRATE 5 MG/5 ML VIAL IV ONE (19:47)
[2021-03-31] MEDS: ENOXAPARIN 30 MG/0.3 ML SYRINGE SUBCUT SCH (20:10)
[2021-03-31 21:17] LABS: ABG Base Excess -6.9 MMOL/L (-2.5-2.5); ABG HCO3 18.8 MMOL/L (20-26); ABG PCO2 26.2 MM HG (35-48); ABG TCO2 15.2 MMOL/L (23-27)
[2021-03-31] MEDS ORDERED: LORazepam 2 MG/1 ML VIAL IV ONE (22:02)
[2021-03-31] MEDS: DILTIAZEM INJ 100 MG in SODIUM CHLORIDE 0.9% 100 ML IV SCH (23:17)
[2021-04-01] MEDS: busPIRone 10 MG TABLET PO SCH ×4 (00:23→17:30)
[2021-04-01] MEDS: PIPERACILLIN/TAZOBACTAM 3,375 MG in SODIUM CHLORIDE 0.9% 100 ML IV SCH ×3 (04:06→17:29)
[2021-04-01] MEDS: PREGABALIN 75 MG CAPSULE PO SCH ×2 (06:36→22:32)
[2021-04-01] MEDS ORDERED: FUROSEMIDE 20 MG/2 ML VIAL IV ONE ×2 (08:27→22:05)
[2021-04-01] MEDS ORDERED: POTASSIUM CHLORIDE 20 MEQ TABLET PO ONE (08:28)
[2021-04-01] MEDS: cloNIDine 0.1 MG TABLET PO SCH ×3 (08:57→22:32)
[2021-04-01] MEDS: MEGESTROL 400 MG/10 ML UDCUP PO SCH (08:57)
[2021-04-01] MEDS: allopurinoL 100 MG TABLET PO SCH (08:57)
[2021-04-01] MEDS: METOPROLOL TARTRATE 50 MG TABLET PO SCH ×2 (08:57→22:32)
[2021-04-01] MEDS: DOCUSATE SODIUM 100 MG CAPSULE PO SCH ×2 (08:57→22:32)
[2021-04-01] MEDS: HYDROXYCHLOROQUINE 200 MG TABLET PO SCH (08:57)
[2021-04-01] MEDS: PANTOPRAZOLE 40 MG TABLET PO SCH ×2 (08:57→22:32)
[2021-04-01] MEDS: MULTIVITAMIN (CENTRUM) TABLET PO SCH (08:57)
[2021-04-01] MEDS ORDERED: LEUCOVORIN 5MG TABLET PO SCH (09:00)
[2021-04-01] MEDS: DILTIAZEM INJ 100 MG in SODIUM CHLORIDE 0.9% 100 ML IV SCH (09:07)
[2021-04-01] MEDS: SODIUM CHLORIDE 0.9% 1,000 ML IV SCH ×2 (09:18→09:19)
[2021-04-01] MEDS ORDERED: METHOTREXATE SUBCUT ONE (12:00)
[2021-04-01] MEDS: FOLIC ACID 1 MG TABLET PO SCH (15:38)
[2021-04-01 19:55] LABS: Basophils % 0.2 % (0.0-0.8); Eosinophils # 0.2 10*3/uL (0.0-0.87); Eosinophils % 2.3 % (0.00-10.9); Hematocrit 23.7 VOL% (35.7-47.0); Hemoglobin 7.2 GM/DL (12.0-16.0); Immature Granulocytes % 1.4 %; Immature Granulocytes Absolute 0.14 #; Lymphocytes # 2.2 10*3/uL (1.4-4.0); Lymphocytes % 21.5 % (21.3-54.2); Mean Corpuscular HGB Conc 30.4 GM/DL (32-36); Mean Corpuscular Volume 101.3 FL (87-102); Mean Platelet Volume 12.8 FL (9.6-12.0); Monocytes % 23.7 % (1.7-12.7); Neutrophils % 50.9 % (38.7-73.9); Platelet Count 119 T/CUMM (130-400); Red Blood Count 2.34 MC/CUMM (3.8-5.5); White Blood Count 10.2 T/CUMM (4-12)
[2021-04-01] MEDS: ENOXAPARIN 30 MG/0.3 ML SYRINGE SUBCUT SCH (22:31)
[2021-04-02] MEDS: busPIRone 10 MG TABLET PO SCH ×5 (01:52→23:59)
[2021-04-02] MEDS: SODIUM CHLORIDE 0.9% 1,000 ML IV SCH (01:53)
[2021-04-02] MEDS: PIPERACILLIN/TAZOBACTAM 3,375 MG in SODIUM CHLORIDE 0.9% 100 ML IV SCH ×3 (02:00→18:09)
[2021-04-02] MEDS: DILTIAZEM INJ 100 MG in SODIUM CHLORIDE 0.9% 100 ML IV SCH ×2 (03:33→10:16)
[2021-04-02 04:21] LABS: Eosinophils 3 % (0-10); Lymphocytes 19 % (20-55); Platelet Estimate Normal; Segmented Neutrophils 61 % (50-85); Total Cells Counted 100
[2021-04-02 04:22] LABS: Anisocytosis 1+
[2021-04-02 04:23] LABS: Macrocytosis Slight; Polychromasia Few
[2021-04-02 05:04] LABS: Basophils % 0.3 % (0.0-0.8); Eosinophils # 0.3 10*3/uL (0.0-0.87); Eosinophils % 3.2 % (0.00-10.9); Hematocrit 23.7 VOL% (35.7-47.0); Hemoglobin 7.2 GM/DL (12.0-16.0); Immature Granulocytes % 1.1 %; Immature Granulocytes Absolute 0.11 #; Lymphocytes # 2.3 10*3/uL (1.4-4.0); Lymphocytes % 22.9 % (21.3-54.2); Mean Corpuscular HGB Conc 30.4 GM/DL (32-36); Mean Corpuscular Volume 100.9 FL (87-102); Mean Platelet Volume 13.6 FL (9.6-12.0); Monocytes % 21.1 % (1.7-12.7); Neutrophils % 51.4 % (38.7-73.9); Platelet Count 129 T/CUMM (130-400); Red Blood Count 2.35 MC/CUMM (3.8-5.5); Red Cell Distribution Width 19.1 % (9.3-17.3); White Blood Count 10.1 T/CUMM (4-12)
[2021-04-02 05:29] LABS: Atypical Lymphocytes Few; Eosinophils 5 % (0-10); Hypochromasia 1+; Lymphocytes 21 % (20-55); Microcytosis 1+; Segmented Neutrophils 55 % (50-85); Total Cells Counted 100
[2021-04-02 05:30] LABS: Ovalocytes Slight; Platelet Estimate Adequate
[2021-04-02 05:31] LABS: Calcium 8.6 MG/DL (8.5-10.1); Osmolality,Calculated 304.1 MOS/KG (273-304); Potassium 3.8 MMOL/L (3.5-5.1)
[2021-04-02 05:35] LABS: Albumin 2.3 G/DL (3.4-5.0); Bilirubin,Total 1.5 MG/DL (0.20-1.00); Calcium 8.8 MG/DL (8.5-10.1); Osmolality,Calculated 299.4 MOS/KG (273-304); Potassium 3.8 MMOL/L (3.5-5.1); Total Protein 5.9 G/DL (6.4-8.2)
[2021-04-02] MEDS: PREGABALIN 75 MG CAPSULE PO SCH ×2 (06:34→21:48)
[2021-04-02] MEDS ORDERED: hydrALAZINE 20 MG/1 ML VIAL IV PRN (08:29)
[2021-04-02] MEDS ORDERED: LORazepam 1 MG TABLET PO ONE (08:29)
[2021-04-02] MEDS ORDERED: FUROSEMIDE 20 MG/2 ML VIAL IV ONE ×2 (08:30→08:52)
[2021-04-02] MEDS: DOCUSATE SODIUM 100 MG CAPSULE PO SCH ×2 (08:37→21:48)
[2021-04-02] MEDS: PANTOPRAZOLE 40 MG TABLET PO SCH ×2 (08:38→21:47)
[2021-04-02] MEDS: MULTIVITAMIN (CENTRUM) TABLET PO SCH (08:38)
[2021-04-02] MEDS: allopurinoL 100 MG TABLET PO SCH (08:38)
[2021-04-02] MEDS: FOLIC ACID 1 MG TABLET PO SCH (08:39)
[2021-04-02] MEDS: cloNIDine 0.1 MG TABLET PO SCH ×3 (08:39→21:48)
[2021-04-02] MEDS: HYDROXYCHLOROQUINE 200 MG TABLET PO SCH (08:39)
[2021-04-02] MEDS: METOPROLOL TARTRATE 50 MG TABLET PO SCH ×2 (08:40→21:47)
[2021-04-02] MEDS ORDERED: POTASSIUM CHLORIDE 20 MEQ TABLET PO ONE (08:46)
[2021-04-02] MEDS ORDERED: MAGNESIUM SULF RIDER 2 GM/50 ML PREMIX IV ONE (08:46)
[2021-04-02] MEDS: MEGESTROL 400 MG/10 ML UDCUP PO SCH (09:40)
[2021-04-02] MEDS: ROSUVASTATIN 20 MG TABLET PO SCH (09:41)
[2021-04-02] MEDS: DILTIAZEM CD 120 MG CAPSULE PO SCH (09:41)
[2021-04-02] MEDS ORDERED: LEUCOVORIN 5MG TABLET PO ONE (10:00)
[2021-04-02] MEDS ORDERED: METHOTREXATE SUBCUT ONE ×2 (10:00→11:00)
[2021-04-02] MEDS ORDERED: LEUCOVORIN 5MG TABLET PO SCH (15:00)
[2021-04-02] MEDS: FUROSEMIDE 40 MG/4 ML VIAL IV SCH (15:56)
[2021-04-02] MEDS: ENOXAPARIN 30 MG/0.3 ML SYRINGE SUBCUT SCH (21:51)
[2021-04-03] MEDS: PIPERACILLIN/TAZOBACTAM 3,375 MG in SODIUM CHLORIDE 0.9% 100 ML IV SCH ×3 (01:50→18:16)
[2021-04-03] MEDS: PREGABALIN 75 MG CAPSULE PO SCH ×2 (05:14→20:29)
[2021-04-03] MEDS: busPIRone 10 MG TABLET PO SCH ×3 (05:14→17:51)
[2021-04-03 06:22] LABS: Osmolality,Calculated 299.3 MOS/KG (273-304); Potassium 3.7 MMOL/L (3.5-5.1)
[2021-04-03] MEDS: FUROSEMIDE 40 MG/4 ML VIAL IV SCH ×2 (08:24→16:54)
[2021-04-03] MEDS: FOLIC ACID 1 MG TABLET PO SCH (08:30)
[2021-04-03] MEDS: DILTIAZEM CD 120 MG CAPSULE PO SCH (08:30)
[2021-04-03] MEDS: HYDROXYCHLOROQUINE 200 MG TABLET PO SCH (08:32)
[2021-04-03] MEDS: ROSUVASTATIN 20 MG TABLET PO SCH (08:32)
[2021-04-03] MEDS: MULTIVITAMIN (CENTRUM) TABLET PO SCH (08:32)
[2021-04-03] MEDS: DOCUSATE SODIUM 100 MG CAPSULE PO SCH ×2 (08:32→20:29)
[2021-04-03] MEDS: METOPROLOL TARTRATE 50 MG TABLET PO SCH ×2 (08:32→20:29)
[2021-04-03] MEDS: allopurinoL 100 MG TABLET PO SCH (08:32)
[2021-04-03] MEDS: cloNIDine 0.1 MG TABLET PO SCH ×2 (08:33→20:29)
[2021-04-03] MEDS: PANTOPRAZOLE 40 MG TABLET PO SCH ×2 (08:33→20:28)
[2021-04-03] MEDS: MEGESTROL 400 MG/10 ML UDCUP PO SCH (08:34)
[2021-04-03] MEDS: POTASSIUM CHLORIDE RIDER 10 MEQ/100 ML PREMIX IV PRN ×2 (10:01→11:05)
[2021-04-03] MEDS ORDERED: SODIUM CHLORIDE 0.9% 1,000 ML IV PRN (12:38)
[2021-04-03] MEDS: ENOXAPARIN 30 MG/0.3 ML SYRINGE SUBCUT SCH (20:30)
[2021-04-04] MEDS: busPIRone 10 MG TABLET PO SCH ×4 (00:39→17:24)
[2021-04-04] MEDS: PIPERACILLIN/TAZOBACTAM 3,375 MG in SODIUM CHLORIDE 0.9% 100 ML IV SCH ×3 (02:57→17:25)
[2021-04-04 05:48] LABS: Basophils % 0.2 % (0.0-0.8); Eosinophils # 0.4 10*3/uL (0.0-0.87); Eosinophils % 3.5 % (0.00-10.9); Hematocrit 28.8 VOL% (35.7-47.0); Hemoglobin 9.3 GM/DL (12.0-16.0); Immature Granulocytes % 0.6 %; Immature Granulocytes Absolute 0.07 #; Lymphocytes # 2.1 10*3/uL (1.4-4.0); Lymphocytes % 16.5 % (21.3-54.2); Mean Corpuscular HGB Conc 32.3 GM/DL (32-36); Mean Corpuscular Volume 96.6 FL (87-102); Mean Platelet Volume 13.3 FL (9.6-12.0); Monocytes % 13.3 % (1.7-12.7); Neutrophils % 65.9 % (38.7-73.9); Platelet Count 169 T/CUMM (130-400); Red Blood Count 2.98 MC/CUMM (3.8-5.5); Red Cell Distribution Width 18.6 % (9.3-17.3); White Blood Count 12.6 T/CUMM (4-12)
[2021-04-04 06:03] LABS: Albumin 2.3 G/DL (3.4-5.0); Bilirubin,Total 0.9 MG/DL (0.20-1.00); Calcium 8.8 MG/DL (8.5-10.1); Potassium 3.4 MMOL/L (3.5-5.1)
[2021-04-04] MEDS: PREGABALIN 75 MG CAPSULE PO SCH ×2 (06:03→21:57)
[2021-04-04 06:33] LABS: Platelet Estimate Normal
[2021-04-04 06:41] LABS: Anisocytosis 1+
[2021-04-04 06:42] LABS: Macrocytosis Slight
[2021-04-04] MEDS: FUROSEMIDE 40 MG/4 ML VIAL IV SCH (08:53)
[2021-04-04] MEDS: DILTIAZEM CD 120 MG CAPSULE PO SCH (08:58)
[2021-04-04] MEDS: ROSUVASTATIN 20 MG TABLET PO SCH (08:58)
[2021-04-04] MEDS: MULTIVITAMIN (CENTRUM) TABLET PO SCH (08:58)
[2021-04-04] MEDS: allopurinoL 100 MG TABLET PO SCH (09:00)
[2021-04-04] MEDS: PANTOPRAZOLE 40 MG TABLET PO SCH ×2 (09:00→21:57)
[2021-04-04] MEDS: cloNIDine 0.1 MG TABLET PO SCH ×2 (09:00→21:57)
[2021-04-04] MEDS: DOCUSATE SODIUM 100 MG CAPSULE PO SCH ×2 (09:00→21:57)
[2021-04-04] MEDS: FOLIC ACID 1 MG TABLET PO SCH (09:00)
[2021-04-04] MEDS: HYDROXYCHLOROQUINE 200 MG TABLET PO SCH (09:01)
[2021-04-04] MEDS: MEGESTROL 400 MG/10 ML UDCUP PO SCH (09:01)
[2021-04-04] MEDS: METOPROLOL TARTRATE 50 MG TABLET PO SCH ×2 (09:01→21:57)
[2021-04-04] MEDS: POTASSIUM CHLORIDE RIDER 10 MEQ/100 ML PREMIX IV PRN ×3 (11:56→14:51)
[2021-04-04] MEDS: ENOXAPARIN 30 MG/0.3 ML SYRINGE SUBCUT SCH (21:58)
[2021-04-05] MEDS: busPIRone 10 MG TABLET PO SCH ×4 (00:06→17:25)
[2021-04-05] MEDS: PREGABALIN 75 MG CAPSULE PO SCH (05:18)
[2021-04-05 05:37] LABS: Basophils % 0.3 % (0.0-0.8); Eosinophils # 0.4 10*3/uL (0.0-0.87); Eosinophils % 3.4 % (0.00-10.9); Hematocrit 31.3 VOL% (35.7-47.0); Hemoglobin 9.8 GM/DL (12.0-16.0); Immature Granulocytes % 0.6 %; Immature Granulocytes Absolute 0.06 #; Mean Corpuscular HGB Conc 31.3 GM/DL (32-36); Mean Corpuscular Volume 98.7 FL (87-102); Mean Platelet Volume 13.2 FL (9.6-12.0); Neutrophils % 71.7 % (38.7-73.9); Platelet Count 174 T/CUMM (130-400); Red Blood Count 3.17 MC/CUMM (3.8-5.5); Red Cell Distribution Width 18.2 % (9.3-17.3); White Blood Count 10.5 T/CUMM (4-12)
[2021-04-05 05:52] LABS: Calcium 9.1 MG/DL (8.5-10.1); Potassium 3.5 MMOL/L (3.5-5.1)
[2021-04-05 06:51] LABS: Anisocytosis 1+; Ovalocytes Few; Platelet Estimate Normal
[2021-04-05 06:52] LABS: Macrocytosis Slight
[2021-04-05] MEDS: MEGESTROL 400 MG/10 ML UDCUP PO SCH (08:51)
[2021-04-05] MEDS: MULTIVITAMIN (CENTRUM) TABLET PO SCH (08:51)
[2021-04-05] MEDS: METOPROLOL TARTRATE 50 MG TABLET PO SCH (08:51)
[2021-04-05] MEDS: PANTOPRAZOLE 40 MG TABLET PO SCH (08:52)
[2021-04-05] MEDS: FOLIC ACID 1 MG TABLET PO SCH (08:52)
[2021-04-05] MEDS: DOCUSATE SODIUM 100 MG CAPSULE PO SCH (08:52)
[2021-04-05] MEDS: HYDROXYCHLOROQUINE 200 MG TABLET PO SCH (08:52)
[2021-04-05] MEDS: cloNIDine 0.1 MG TABLET PO SCH (08:52)
[2021-04-05] MEDS: DILTIAZEM CD 120 MG CAPSULE PO SCH (08:52)
[2021-04-05] MEDS: allopurinoL 100 MG TABLET PO SCH (08:53)
[2021-04-05] MEDS: ROSUVASTATIN 20 MG TABLET PO SCH (08:53)
[2021-04-05] MEDS ORDERED: FUROSEMIDE 20 MG TABLET PO SCH (09:00)
[2021-04-05 12:15] VITALS: BP 123/81
== END 2021-04-05 19:38 | DRG 811 ==
LOC: EDUNIT# → EDBD → N.ED 12:25 → N.EDINP 12:25 → N.5E 16:36 → N.TELEN 03-31 22:30
PROVIDERS: ADMIT Family Medicine; ATTEND Family Medicine